=== PATIENT | male | born 1960 | race Caucasian/White ===

== ENCOUNTER 2023-04-15 08:46 | Day surgery (SDC) | payer OTHER, SELFPAY ==
--- NOTE | 2023-04-14 10:56 | HO.ANESPROP2 ---
HPI - Anesthesia Eval Consult details Narrative: 62yo M for [facility] Past Medical History Medical History (Updated 04/14/23 @ 10:50 by Emerald Lu, RN) GERD (gastroesophageal reflux disease) Gout Surgical History Surgical History (Updated 04/14/23 @ 10:49 by Emerald Lu, RN) Hx of esophagogastroduodenoscopy Hx of colonoscopy Meds Allergies Allergy/AdvReac Type Severity Reaction Status Date / Time No Known Allergies Allergy Verified 04/14/23 10:48 Home Medications Medication Instructions Recorded Confirmed Last Taken Type aspirin 81 mg tablet 81 mg PO DAILY 04/14/23 04/14/23 Unknown History sildenafil 50 mg tablet 25 mg PO DAILY PRN Erectile 04/14/23 04/14/23 Unknown History Dysfunction Exam Exam Date and Time: April 14, 2023 105 Assessment and Plan Assessment Anesthesia Assessment: Chart Reviewed
--- NOTE | 2023-04-15 09:08 | P.CONAN_ITS ---
[facility], [facility] Past Medical History Medical History GERD (gastroesophageal reflux disease) Gout Surgical History Surgical History Hx of esophagogastroduodenoscopy Hx of colonoscopy Social History Social History Patient Tobacco Use Status: Never used Tobacco Meds Allergies Allergy/AdvReac Type Severity Reaction Status Date / Time No Known Allergies Allergy Verified 04/14/23 10:48 Home Medications Medication Instructions Recorded Confirmed Last Taken Type aspirin 81 mg tablet 81 mg PO DAILY 04/14/23 04/14/23 Unknown History sildenafil 50 mg tablet 25 mg PO DAILY PRN Erectile 04/14/23 04/14/23 Unknown History Dysfunction Exam Exam Date and Time: April 15, 2023 0908 Airway Mallampati Class: III TM Dist: >3cm Neck ROM: Full Heart: RRR Lungs: CTA Assessment and Plan Assessment Anesthesia Assessment: Anesthesia Plan Discussed Final Anesthetic Review ASA Class: II Final Preanesthetic Review: Meds/Allgs Chart Reviewed, Consent Obtained/Reviewed and Anes Risks/Benef Reviewed Patient Risk: Low Procedure Risk: Low Anesthetic Plan Anesthetic Plan: MAC: Disposition: Standard PACU
[2023-04-15 09:45] VITALS: BMI 30.9
[2023-04-15 09:48] VITALS: BP 117/72; PULSE 57; RESP 18; TEMP 36.6; O2SAT 99
[2023-04-15] MEDS: Lactated Ringers 1,000 ML 100 ML IVCONT (09:50)
--- NOTE | 2023-04-15 09:52 | MHC.SHP ---
Pre-Procedural Eval Section A Date of Service: 04/15/23 Section B Chief Complaint: screening Details of Present Illness: see H&P no changes Relevant Family History (Specify if Yes): No Relevant Social History: None Present Medications: see Short Stay Collaborative assessment Medical History: No relevant PMH History of Previous Operations: No relevant previous surgery Allergies: Allergies Allergy/AdvReac Type Severity Reaction Status Date / Time No Known Allergies Allergy Verified 04/14/23 10:48 Review of Systems Sugical H&P ROS: Negative: Constitution, Cardiovascular, Respiratory, Neurological, Psychiatric, Hem-Onc, Allergic/Immunologic, Gastrointestinal, Genitourinary, Musculoskeletal, Integumentary, Endocrine and Eyes/Ears/Nose/Throat Exam Surgical H&P Exam: Normal: HEENT, Normal: Heart, Normal: Lungs, Normal: Extremities, Normal: Abdomen, Normal: Skin and Normal: Neurological Plan Diagnosis/Plan: Unchanged I have reviewed the history and physical and performed a pertinent physical examination on my patient. No changes have occurred unless specified. Time Spent With Patient Time: Total time managing care of this patient today ____ minutes.
--- NOTE | 2023-04-15 10:18 | P.BOP_ITS ---
Brief Operative Note Date of Service: 04/15/23 Pre-op diagnosis: screening Post-op diagnosis: same Procedure: colonoscopy Surgeon: Chidi Norman Anesthesia: MAC Was an Accounts Receivable Clerk used for this Procedure?: No Estimated blood loss (mL): 0 Pathology: none sent Condition: stable Disposition: PACU
[2023-04-15 10:21] VITALS: BP 120/67; PULSE 54; RESP 16; TEMP 36.6; O2SAT 98
[2023-04-15 10:35] VITALS: BP 123/82; PULSE 55; RESP 16; TEMP 36.3; O2SAT 98
--- NOTE | 2023-04-15 10:53 | HO.POSTANES ---
Post Anesthesia Evaluation Post Anesthesia Evaluation Date of Service: 04/15/23 Vital Signs: Vital Signs Temp Pulse Resp BP Pulse Ox O2 Del Method 04/15/23 10:35 97.4 F 55 16 123/82 98 Room Air 04/15/23 10:21 97.8 F 54 16 120/67 98 Room Air 04/15/23 09:48 97.8 F 57 18 117/72 99 Room Air Anesthesia: Monitored Mental Status: Awake Pain Control: Satisfactory Nausea/Vomiting: None Hydration: Adequate Anesthesia-Related Issues: No Anes. Related Issues
--- NOTE | 2023-04-15 12:28 | OP_ITS ---
DATE OF SERVICE: 04/15/2023 SURGEON: Chidi Norman MD INDICATIONS: Colon cancer screening and prior history of adenomatous colon polyps. PREOPERATIVE DIAGNOSIS: POSTOPERATIVE DIAGNOSIS: PROCEDURE PERFORMED: Colonoscopy to the terminal ileum. ESTIMATED BLOOD LOSS: COMPLICATIONS: ANESTHESIA: Monitored anesthesia care. ASSISTANTS: SPECIMENS: DESCRIPTION OF PROCEDURE: A history and physical was performed. The risks and benefits of the procedure were explained to the patient. Informed consent was obtained. The patient was placed in a left lateral decubitus position. A digital rectal exam was performed and was found to be normal. The Olympus pediatric video colonoscope was introduced into the rectum and advanced to the cecum. The cecum was identified by transillumination, palpation, and identification of ileocecal valve. Examination was performed. The scope was removed. He tolerated the procedure well and was returned to the recovery area in stable condition. FINDINGS: The terminal ileum was examined and appeared normal. The visualized colonic mucosa was normal. The quality of the prep was good. No polyps were identified. Retroflexed examination showed some moderate-sized internal hemorrhoids. IMPRESSION: Normal colonoscopy. RECOMMENDATION: 1. Follow up as needed. 2. Repeat colonoscopy is recommended in 5 years because of family history of colon cancer. MD BIBI Blair/CHAD / [id number]
== END 2023-04-15 11:01 | disposition home or self-care (01) ==
PROVIDERS: PCP Internal Medicine; Visit Provider Internal Medicine Gastroenterology
PROC: 0DJD8ZZ Inspection of Lower Intestinal Tract, Via Natural or Artificial Opening Endoscopic (ICD-10-PCS; CPT 45378; principal; 2023-04-15 09:50)
DX: Z12.11 Encounter for screening for malignant neoplasm of colon (principal); K64.8 Other hemorrhoids; Z80.0 Family history of malignant neoplasm of digestive organs; Z79.82 Long term (current) use of aspirin; K21.9 Gastro-esophageal reflux disease without esophagitis
CPT/HCPCS: 45378